=== PATIENT | male | born 1965 | race American Indian/Alaskan Native ===

== ENCOUNTER 2017-04-16 12:45 | Emergency (ER) | payer BC ==
[2017-04-16 12:48] VITALS: BMI 30.8
[2017-04-16 12:49] VITALS: TEMP 98.2
[2017-04-16] MEDS ORDERED: Sodium Chloride 0.9% 1,000 ML IV STA (13:02)
--- NOTE | 2017-04-16 13:11 | ED PDOC ---
HPI: General Adult Time Seen by Provider: 04/16/17 12:51 Chief Complaint (Provider): Syncope History Per: Patient History/Exam Limitations: no limitations Onset/Duration Of Symptoms: Days (Today) Current Symptoms Are (Timing): Still Present Additional Complaint(s): Pt. was working out and started getting light-headed. Pt. then passed out for 30 seconds. EMS came and did an EKG which was ok. Pt. started feeling better and tried to get up several times, each time getting light-headed. Pt. denied any other chest pain, dyspnea, fever, cough, numbness, headaches, vision changes , abd pain, back pain at anytime. No focal weakness. Feels generally weak all over. Tingles all over body which is gone now. Pt. has had light-headed episodes sporadically for years, but never passed out. Pt. denies palpitations. For 6 weeks pt. is on a is[employer] diet with which he lost 25 lbs. Only had a protein shake today. Had marijuana yesterday. No incontinence or tongue bite. Past Medical History Reviewed: Nursing Documentation, Vital Signs Vital Signs: Last Vital Signs Temp 98.2 F 04/16/17 12:48 Pulse 78 04/16/17 13:46 Resp 16 04/16/17 13:46 BP 106/63 04/16/17 13:46 Pulse Ox 99 04/16/17 14:25 - Medical History Other PMH: Dizziness episodes - Surgical History Surgical History: No Surg Hx - Family History Family History: States: Unknown Family Hx - Living Arrangements Living Arrangements: With Family - Social History Current smoker - smoking cessation education provided: No Alcohol: None Drugs: Cannabis - Home Medications Home Medications: Ambulatory Orders Medication Instructions Recorded No Known Home Med 04/16/17 - Allergies Allergies/Adverse Reactions: Allergies Allergy/AdvReac Type Severity Reaction Status Date / Time No Known Allergies Allergy Verified 04/16/17 13:00 Review of Systems ROS Statement: Except As Marked, All Systems Reviewed And Found Negative Constitutional: Positive for: Sweats, Weakness Cardiovascular: Positive for: Light Headedness Neurological: Positive for: Dizziness Physical Exam - Reviewed Nursing Documentation Reviewed: Yes Vital Signs Reviewed: Yes - Physical Exam Appears: Positive for: Well, Non-toxic, No Acute Distress Head Exam: Positive for: ATRAUMATIC, NORMAL INSPECTION, NORMOCEPHALIC Skin: Positive for: Normal Color, Warm, DRY Eye Exam: Positive for: EOMI, Normal appearance, PERRL ENT: Positive for: Normal ENT Inspection Neck: Positive for: Normal, Painless ROM, Supple Cardiovascular/Chest: Positive for: Regular Rate, Rhythm, Chest Non Tender. Negative for: Edema Respiratory: Positive for: CNT, Normal Breath Sounds Gastrointestinal/Abdominal: Positive for: Normal Exam, Bowel Sounds, Soft. Negative for: Tenderness Back: Positive for: Normal Inspection. Negative for: L CVA Tenderness, R CVA Tenderness Extremity: Positive for: Normal ROM. Negative for: Tenderness, Pedal Edema Neurologic/Psych: Positive for: Alert, shoeblack II-XII, Oriented. Negative for: Motor/Sensory Deficits, Aphasia, Facial Droop - Laboratory Results Result Diagrams: 04/16/17 14:03 04/16/17 14:03 Interpretation Of Abn Labs: 22 bun - ECG ECG: Positive for: Interpreted By Me, Viewed By Me ECG Rhythm: Positive for: Normal QRS, Normal ST Segment, Sinus Rhythm O2 Sat by Pulse Oximetry: 99 Pulse Ox Interpretation: Normal - Other Rad US X-Ray Interpretation: no acute - CT Scan/US head Other Rad Studies (CT/US): Read By Radiologist - Progress ED Course And Treament: 1450: Stable. AAOx3. Pain free. Tolerated PO. Ambulating with no issues. 1458: Stable. Has appt with chemistry technician next week. Does not wish to be admitted to the hospital for further evaluation. Pt. is ambulating with no issues. Has capacity to make decisions. Aware of possible or decreased functioning from possible causes of syncope. Family and pt. friend physician at bedside agree with pt. decision. Medical Decision Making Medical Decision Makin:[address] FINDINGS: HEMORRHAGE: No intracranial hemorrhage. BRAIN: No mass effect or edema. No atrophy or chronic microvascular ischemic changes. VENTRICLES: Unremarkable. No hydrocephalus. CALVARIUM: Unremarkable. PARANASAL SINUSES: Unremarkable as visualized. No significant inflammatory changes. MASTOID AIR CELLS: Unremarkable as visualized. No inflammatory changes. OTHER FINDINGS: None. IMPRESSION: Normal CT of the Head. Disposition - Clinical Impression Clinical Impression: Syncope - Patient ED Disposition Is Patient to be Admitted: No Counseled Patient/Family Regarding: Studies Performed, Diagnosis, Need For Followup - Disposition Referrals: Cindy Parekh MD [Staff Provider] - Disposition: Routine/Home Disposition Time: 15:01 Condition: STABLE Additional Instructions: Return if not better in 24hrs. See your heart doctor and primary care doctor without fail. You are refusing admission at this time for further evaluation and treatment. Be aware that we have not found the cause of your symptoms. Instructions: Syncope (ED) Forms: [employer] (Pakistani)
[2017-04-16 13:46] VITALS: BP 106/63; PULSE 78; RESP 16
[2017-04-16 14:09] LABS: BASO % 0.2 % (0.0-2.0); EOS % 0.3 % (0.0-4.0); HEMATOCRIT 40.2 % (35.0-51.0); LYMPH # 1.2 K/uL (1.0-4.3); LYMPH % 21.6 % (20.0-40.0); MEAN CELL VOLUME 86.5 fl (80.0-94.0); MEAN CORPUSCULAR HGB CONC 32.3 g/dL (33.0-37.0); MEAN PLATELET VOLUME 8.1 fl (7.2-11.7); MONO # 0.3 K/uL (0.0-0.8); NEUT # 4.1 K/uL (1.8-7.0); NEUT % 72.9 % (50.0-75.0); RED CELL DISTRIBUTION WIDTH 13.7 % (11.5-14.5); WHITE BLOOD COUNT 5.7 K/uL (4.8-10.8)
[2017-04-16 14:17] LABS: ALB/GLOB RATIO 1.4 (1.0-2.1); ALCOHOL SERUM < 10 mg/dl (0-10); ALKALINE PHOSPHATASE 61 U/L (38-126); ALT/SGPT 35 U/L (21-72); AST/SGOT 29 U/L (17-59); BILIRUBIN,TOTAL 0.4 mg/dl (0.2-1.3); BLOOD UREA NITROGEN 22 mg/dl (9-20); CARBON DIOXIDE 27 mmol/L (22-30); CHLORIDE 100 mmol/L (98-107); GFR AFRICAN-AMERICAN > 60; GLUCOSE,RANDOM 107 mg/dL (75-110); POTASSIUM 4.5 MMOL/L (3.6-5.0); SODIUM 138 mmol/l (132-148)
--- NOTE | 2017-04-16 14:21 | CT ---
PROCEDURE: CT HEAD WITHOUT CONTRAST. HISTORY: headache COMPARISON: None available. TECHNIQUE: Axial computed tomography images were obtained through the head/brain without intravenous contrast. Radiation dose: Total exam DLP = 897 mGy-cm. This CT exam was performed using one or more of the following dose reduction techniques: Automated exposure control, adjustment of the mA and/or kV according to patient size, and/or use of iterative reconstruction technique. FINDINGS: HEMORRHAGE: No intracranial hemorrhage. BRAIN: No mass effect or edema. No atrophy or chronic microvascular ischemic changes. VENTRICLES: Unremarkable. No hydrocephalus. CALVARIUM: Unremarkable. PARANASAL SINUSES: Unremarkable as visualized. No significant inflammatory changes. MASTOID AIR CELLS: Unremarkable as visualized. No inflammatory changes. OTHER FINDINGS: None. IMPRESSION: Normal CT of the Head.
[2017-04-16 14:24] VITALS: O2SAT 99
--- NOTE | 2017-04-16 14:56 | US ---
PROCEDURE: Carotid vertebral duplex sonography HISTORY: syncope COMPARISON: None available. TECHNIQUE: Grayscale, color Doppler and spectral Doppler assessment of the carotid system bilaterally. This includes common carotid, internal carotid arteries Vertebral artery assessment with respect to direction of flow (antegrade or retrograde) FINDINGS: RIGHT carotid system: Assessment of plaque: Heterogeneous plaque formation. Peak systolic ICA velocity: 100.0 cm/sec End-diastolic velocity: 34.7 cm/sec ICA/CCA ratio: 1.1 Vertebral artery flow: Antegrade LEFT carotid system: Assessment of plaque: Heterogeneous plaque formation. Peak systolic ICA velocity: 109.3 cm/sec End-diastolic velocity: 39.4 cm/sec ICA/CCA ratio: 1.06 Vertebral artery flow: Antegrade IMPRESSION: Right ICA degree of stenosis: Less than 50% Left ICA degree of stenosis: Less than 50% Reference Internal Carotid Artery (ICA) Peak Systolic Velocity (PSV) for above: 1. Less than 50% stenosis less than 125 cm/s peak systolic velocity 2. 50-69% stenosis 125-230cm/s peak systolic velocity 3. Greater than 70% but less than near occlusion greater than 230 cm/s peak systolic velocity
[2017-04-16 14:57] LABS: PHOSPHOROUS 1.8 mg/dl (2.5-4.5)
--- NOTE | 2017-04-17 14:51 | CARD ---
APPROVED REPORT EKG Measurement Heart [id number] <Conclusion> Normal sinus rhythm Normal ECG
== END 2017-04-16 15:32 | disposition home or self-care (01) ==
LOC: H.ER 12:45
DX: R55 Syncope and collapse (principal)
CPT/HCPCS: 70450; 80053; 82550; 82948; 83735; 84100; 84484; 85025; 85610; 85730; 93005; 93880; 99285; G0480